=== PATIENT | female | born 1950 | race Two or more races ===

== ENCOUNTER 2021-08-31 07:18 | Outpatient (CLI) | payer OTHER | END 2021-08-31 07:23 | disposition home or self-care (01) | LOC: RX STUDY 07:18 | PROVIDERS: ATTEND Internal Medicine Gastroenterology | DX: K59.09 Other constipation (principal); K57.32 Diverticulitis of large intestine without perforation or abscess without bleeding; K57.92 Diverticulitis of intestine, part unspecified, without perforation or abscess without bleeding; K56.600 Partial intestinal obstruction, unspecified as to cause ==